=== PATIENT | male | born 1950 | race Caucasian/White ===

== ENCOUNTER 2017-04-30 14:15 | Emergency (ER) | payer OTHER ==
[2017-04-30 14:24] VITALS: TEMP 98.4
--- NOTE | 2017-04-30 15:18 | EDPHY ---
H & P Time Seen by Provider: 04/30/17 14:57 HPI/ROS: Chief complaint. Fall, trunk injury HPI. 66-year-old male presents emergency department with pain and swelling to the right flank. The patient was skiing today and got tangled up getting off the chair lift. He fell backwards landing on either his ski pole or ski with the right flank. [place]. He has urinated and the urine is reported as clear by the patient. He has no discomfort over the spine. He does have some discomfort with deep breathing in the right lower back area. There is swelling. He has been using some ice. He has a previous history of bleeding in the left kidney that was thought to be secondary to being on anticoagulants ROS Constitutional. no fever/chills, no weakness Eyes. no problems with vision ENT. no sore throat, no nasal drainage Cardiovascular. no chest pain Respiratory. no shortness of breath, no cough Abdominal. no abdominal pain, no nausea/vomiting, no diarrhea . no problems urinating MS. Right flank pain and swelling Skin. no rash Lymph. no swollen glands Neuro. no headache, no dizziness, no difficulty walking or with speech Past Medical/Surgical History: Past medical history is significant for bilateral hip surgery, sleep apnea, dyslipidemia, prostate stricture, cardiac stent Social History: , nonsmoker, no alcohol Smoking Status: Never smoked Physical Exam: General Appearance: Alert well-developed male mild distress vital signs are stable Eyes: Pupils equal and round no pallor or injection. ENT, Mouth: Mucous membranes are moist. Respiratory: There are no retractions, lungs are clear to auscultation. Cardiovascular: Regular rate and rhythm. Gastrointestinal: Abdomen is soft and nontender, no masses, bowel sounds normal. Neurological: Awake and alert, sensory and motor exams grossly normal. Skin: Warm and dry, no rashes. Musculoskeletal: Neck is supple nontender. No tenderness over the thoracic or lumbar spine. There is mild swelling to the right flank and right of the upper lumbar area Extremities symmetrical, full range of motion. Psychiatric: Patient is oriented X 3, there is no agitation. Constitutional: Initial Vital Signs Temperature (C) 36.9 C 04/30/17 14:20 Heart Rate 60 04/30/17 14:20 Respiratory Rate 17 04/30/17 14:20 Blood Pressure 158/99 H 04/30/17 14:20 O2 Sat (%) 96 04/30/17 14:20 O2 Delivery Mode Room Air Allergies/Adverse Reactions: No Known Allergies Allergy (Verified 04/30/17 14:18) Home Medications: Medication Instructions Recorded Atorvastatin Calcium [Lipitor 40 40 mg PO DAILY 04/30/15 mg (*)] Herbals/Supplements -Info Only 1 ea PO DAILY 04/30/15 Multivitamins [Multivitamin (*)] 1 each PO DAILY 04/30/15 Aspirin EC [Aspirin EC 325 mg (*)] 325 mg PO DAILY #0 tab 05/01/15 Nitroglycerin [Nitrostat 0.4 mg 0.4 mg SL PRN PRN #1 btl 05/01/15 (*)] Cholecalciferol Vit D3 [Vitamin D3 2,000 units PO DAILY 10/15/15 2000 units] Medical Decision Making - Diagnostics Imaging Results: Chest x-ray reviewed by me shows no evidence of fracture or pneumothorax ED Course/Re-evaluation: Re-evaluation at 4:30 p.m.. The patient, his and I talked about microscopic hematuria. The patient tells me he always has slight microscopic hematuria after his prostate surgeries. He feels that this is similar to his previous urinalysis. There is no gross blood. Chest x-ray shows no rib fractures or pneumothorax. The patient, his and I discussed treatment plan including criteria for return importance of follow-up and further evaluation. He expresses understanding and agreement Differential Diagnosis: I considered kidney injury, thoracic and lumbar spine injury. I think that this is musculoskeletal hematoma. - Data Points Laboratory Results: 04/30/17 15:49 Urine Color YELLOW Urine Appearance CLEAR Urine pH 6.0 (5.0-7.5) Ur Specific [place] 1.019 (1.002-1.030) Urine Protein NEGATIVE (NEGATIVE) Urine Ketones NEGATIVE (NEGATIVE) Urine Blood 2+ H (NEGATIVE) Urine Nitrate NEGATIVE (NEGATIVE) Urine Bilirubin NEGATIVE (NEGATIVE) Urine Urobilinogen NEGATIVE EU EU (0.2-1.0) Ur Leukocyte Esterase NEGATIVE (NEGATIVE) Urine RBC 25-50 /hpf H /hpf (0-3) Urine WBC 1-3 /hpf /hpf (0-3) Ur Epithelial Cells TRACE /lpf /lpf (NONE-1+) Urine Bacteria TRACE /hpf H /hpf (NONE SEEN) Urine Mucus TRACE /lpf /lpf (NONE-1+) Urine Glucose NEGATIVE (NEGATIVE) Departure - Departure Disposition: Home, Routine, Self-Care Clinical Impression: Contusion, flank Qualifiers: Encounter type: initial encounter Qualified Code(s): S30.1XXA - Contusion of abdominal wall, initial encounter Condition: Good Instructions: Contusion in Adults (ED) Additional Instructions: Ice to sore area of back next 24-48 hours. Tylenol for discomfort. Easy activity. Return for worsening pain, fever, urinating blood. Recheck in 2-3 days if not Referrals: Rey Lo MD [Primary Care Provider] - 2-3 days, if not improved Erickson Espinoza MD [Medical Doctor] - As per Instructions
[2017-04-30 16:16] LABS: COLOR YELLOW; LEUKOCYTE ESTERASE,URINE NEGATIVE (NEGATIVE); NITRITE,URINE NEGATIVE (NEGATIVE)
[2017-04-30 16:17] LABS: MUCUS TRACE /lpf (NONE-1+); RBC,URINE 25-50 /hpf (0-3)
[2017-04-30 16:19] LABS: BACTERIA TRACE /hpf (NONE SEEN)
[2017-04-30 16:45] VITALS: BP 156/91; PULSE 52; RESP 16; O2SAT 95
== END 2017-04-30 16:48 | disposition home or self-care (01) ==
DX: S30.1XXA Contusion of abdominal wall, initial encounter (principal); Z95.5 Presence of coronary angioplasty implant and graft; Z79.82 Long term (current) use of aspirin; V00.321A Fall from snow-skis, initial encounter; Y99.8 Other external cause status; Y93.23 Activity, snow (alpine) (downhill) skiing, snowboarding, sledding, tobogganing and snow tubing